=== PATIENT | female | born 1995 | race Caucasian/White ===

== ENCOUNTER 2016-07-04 12:06 | Emergency (ER) | payer OTHER ==
[2016-07-04 12:31] VITALS: BP 145/80; PULSE 110; TEMP 98.4; BMI 45.1
[2016-07-04] MEDS ORDERED: IBUPROFEN 800 MG TAB PO ONE (12:44)
--- NOTE | 2016-07-04 12:47 | EDPRACDOC ---
- General Information Chief Complaint: Foot Pain Stated Complaint: POP IN RT FOOT PAINFUL Time Seen by Provider: 07/04/16 12:33 Information Source: Patient Mode of Arrival: Car Home Medications: Home Medications Ibuprofen Tablet [Motrin] 800 mg PO QID #30 tab 07/04/16 Allergies/Adverse Reactions: Allergies Allergy/AdvReac Type Severity Reaction Status Date / Time Iodinated Contrast Media - Allergy Hives* Verified 07/04/16 12:49 IV Dye - History of Present Illness Onset: [employer] HPI: PT PRESENTS WITH LEFT HEEL PAIN THAT SHE STATES BEGAN AFTER SHE REACHED UP INTO A CABINET AND FELT A POP IN THE BACK OF HER FOOT. PT STATES THE AREA CONTINUES TO BURN AND STING. PT HAS FULL ROM AND IS ABLE TO WALK FULLY ON THE FOOT. 2+ PEDAL PULSE NOTED, BRISK CAP REFILL, NEURO-VASCULAR INTACT. Foot Problem Location: Reports: Left, Heel Mechanism: Reports: Hyperextension Circumstances: Reports: Spontaneous Tetanus Up To Date?: Yes Able to Bear Weight: Fully Pain Severity: Reports: Mild Associated Signs & Symptoms: Reports: None ED Past Medical History - History Reviewed Yes Nurses notes reviewed and agree except as marked - Patient Medical History Respiratory History: Reports: Asthma GI/ History: Reports: Urinary Tract Infection Psychological History: Reports: Depression, Bipolar Disorder Surgical History: Reports: Cholecystectomy, Tonsillectomy/Adnoidectomy - Family Medical History Reports: Hypertension (mother), Diabetes (mother). Denies: Cancer, Stroke, Cardiac Disorders - Social Medical History Smoking Status: Former smoker EDM Review of Systems - Review of Systems ROS Negative Except as Marked: Yes All systems reviewed and were negative except as marked - Physical Exam Constitutional: No apparent distress, Alert Oriented to: Time, Person, Place Last recorded Vital Signs: Last Vital Signs Temp 98.4 F 07/04/16 12:27 Pulse 110 07/04/16 12:27 Resp 20 07/04/16 12:27 BP 145/80 07/04/16 12:27 Pulse Ox 97 07/04/16 12:27 Oxygen Pulse Oxygen Saturation 97 O2 Device Oxygen Flow Rate Fraction of Inspired Oxygen ( FIO2) - HEENT Head: Normal ( normocephalic) Eye Exam: Normal (PERRL, EOMI, Sclera white) Oropharynx: Normal (Pharynx:Moist without exudate,Gums-no swelling) Nose: No Symptoms Reported (septum midline) Neck: Normal (FROM, trachea at midline) - Respiratory/Cardiovascular Respiratory: Normal - CTA (BBS clear to auscultation without adventitious sounds ) Cardiovascular: Normal (RRR without murmur, gallop or rub) - GI Auscultation: Normal (NABS) Palpation: Normal (Soft,No rebound or guarding, non distended) Tenderness: Non tender Meadows's Sign: Negative Rectal Exam: Deferred - Musculoskeletal Back: Normal (Non-Tender) Extremities: Normal (Normal tone, Pulses 2+ No cyanosis or edema, FROM) - Integumentary Skin: Normal, Warm, Dry Lymphatics: Normal (no adenopathy) - Neurologic Memory Impaired: Normal Motor Function: Normal (Normal tone, Pulses 2+ No cyanosis or edema, FROM) Cranial Nerve: Normal (CN II-X11 intact sensation, strength 5/5) Cerebellar: Normal Mood Description: Normal Perception: Normal ED Foot Problem Phys Exam - Musculoskeletal Foot: Normal Ankle: Normal Achilles Tendon: Tender Nail: Normal Nailbed: Normal Soft Tissue: Normal Digit: Normal Digit Strength: Normal Distal Function/Circulation: Normal - Integumentary Skin: Normal Lymphatics: Normal - Differential Diagnosis Other Decision Time to Discharge: 12:59 - Departure Disposition: Home Condition: Stable Final Diagnosis: Left foot pain Instructions: RICE: Routine Care for Injuries, Arthralgia (ED) Education/Counseling Given To: Patient Education/Counseling Given Regarding: Diagnosis, Treatment, Prognosis, Follow Up Referrals: Matthew Carias Jr, DO [Primary Care Provider] - One Week Trevor Hazel MD [Staff Physician] - One Week Prescriptions: Ibuprofen Tablet [Motrin] 800 mg PO QID #30 tab Additional Instructions: ICE AND ELEVATION IS VERY IMPORTANT. FOLLOW UP WITH PCP NEXT WEEK. IF PAIN CONTINUES PLEASE FOLLOW UP WITH ORTHOPEDIC. RETURN TO THE ED FOR WORSENING SYMPTOMS OR CONCERNS
--- NOTE | 2016-07-04 12:53 | DIRPT ---
CLINICAL DATA: PAIN IN RIGHT FOOT. PATIENT WAS STANDING ON TIPTOES THIS MORNING, AND FELT SOMETHING POP, IN THE AREA OF THE ACHILLES TENDON. Initial encounter. EXAM: RIGHT FOOT COMPLETE - 3+ VIEW COMPARISON: None. FINDINGS: There is no evidence of fracture or dislocation. There is no evidence of arthropathy or other focal bone abnormality. Soft tissues are unremarkable. IMPRESSION: Negative. Electronically Signed By: Tarun Quiroga M.D. On: 07/04/2016 12:50
== END 2016-07-04 13:05 | disposition home or self-care (01) ==
LOC: EDMC 12:06
DX: M79.671 Pain in right foot (principal)
CPT/HCPCS: 99282; J3490